=== PATIENT | male | born 1975 | race Caucasian/White ===

== ENCOUNTER 2024-01-31 08:08 | Day surgery (SDC) | payer BC ==
[2024-01-31] MEDS: Lactated Ringers 1,000 ML IV SCH (08:34)
[2024-01-31] MEDS ORDERED: propofoL 50 ML ONE (09:43)
[2024-01-31] MEDS ORDERED: Water For Injection, Sterile 20 ML ONE (09:45)
[2024-01-31] MEDS ORDERED: dexmedeTOMIDine HCl 200 MCG/2 ML SDV ONE (09:45)
[2024-01-31] MEDS ORDERED: Propofol 200 MG/20 ML SDV ONE (10:32)
[2024-01-31] MEDS ORDERED: Lactated Ringers 1,000 ML IV SCH (10:45)
== END 2024-01-31 11:20 | disposition home or self-care (01) ==
LOC: MW.SDS 08:08
PROVIDERS: ATTEND Surgery
DX: Z12.11 Encounter for screening for malignant neoplasm of colon (principal); D12.3 Benign neoplasm of transverse colon; K62.1 Rectal polyp; I10 Essential (primary) hypertension; E11.9 Type 2 diabetes mellitus without complications; Z87.891 Personal history of nicotine dependence; Z79.84 Long term (current) use of oral hypoglycemic drugs; Z79.899 Other long term (current) drug therapy
CPT/HCPCS: 45380; J2704; J7120; 00811; J3490